=== PATIENT | male | born 1975 | race Caucasian/White ===

== ENCOUNTER 2017-03-27 09:01 | Emergency (ER) | payer BC ==
--- NOTE | 2017-03-27 09:40 | EDM.PDOC ---
ED HPI GENERAL MEDICAL PROBLEM - General Chief Complaint: Cardiovascular Problem Stated Complaint: SENT BY CLINIC HIGH BLOOD PRESSURE Time Seen by Provider: 03/27/17 09:25 Source of Information: Reports: Patient History Limitations: Reports: No Limitations - History of Present Illness INITIAL COMMENTS - FREE TEXT/NARRATIVE: The patient presents with sinus congestion, facial pain and sinus infection. He says he sees this every year about this time. He has no fever yet and she has no cough or sore throat. He has a history of HTN and he did not take his medication this morning. He worked all night. His BP was high and when he went to the walk in clinic they sent him over here. He also has a holter monitor on and he is reacting to the patch on his left lateral chest. He denies chest pain, headache, numbness or weakness. Onset: Gradual Duration: Day(s): (Yesterday) Location: Reports: Face Quality: Reports: Pressure Severity: Moderate Improves with: Reports: None Worsens with: Reports: None Associated Symptoms: Reports: No Other Symptoms - Related Data Allergies Allergy/AdvReac Type Severity Reaction Status Date / Time buspirone HCl [From BuSpar] Allergy Hallucinati Verified 03/27/17 09:12 ons adhisive. Allergy Rash Uncoded 03/27/17 09:13 Home Meds: Home Meds Aspirin 81 mg PO DAILY 02/12/16 [History] Clopidogrel [Plavix] 75 mg PO DAILY 02/12/16 [History] Furosemide [Lasix] 40 mg PO ASDIRECTED 02/12/16 [History] Insulin Aspart [NovoLOG] 8 units SQ TID 02/12/16 [History] Isosorbide Mononitrate [Isosorbide Mononitrate ER] 30 mg PO DAILY 02/12/16 [ History] Losartan Potassium 50 mg PO DAILY 02/12/16 [History] Metoprolol Succinate [Metoprolol Succinate] 50 mg PO DAILY 02/12/16 [History] Multivitamin [One Daily] 1 tab PO DAILY 02/12/16 [History] Potassium Gluconate 595 mg PO ASDIRECTED 02/12/16 [History] Simvastatin [Zocor] 20 mg PO DAILY 02/12/16 [History] Amoxicillin 1,000 mg PO BID #40 tab 03/27/17 [Rx] Escitalopram [Lexapro] 10 mg PO DAILY 03/27/17 [History] Gabapentin [Neurontin] 300 mg PO TID 03/27/17 [History] Insulin Degludec [Tresiba Flextouch U-200] 45 units SQ DAILY 03/27/17 [History] hydrOXYzine HCl [Atarax] 25 mg PO BEDTIME 03/27/17 [History] Past Medical History Cardiovascular History: Reports: Heart Failure, Hypertension, [place] Psychiatric History: Reports: Depression Endocrine/Metabolic History: Reports: Diabetes, Type I Social & Family History - Tobacco Use Smoking Status *Q: Never Smoker ED ROS GENERAL - Review of Systems Review Of Systems: See Below Constitutional: Reports: No Symptoms HEENT: Reports: Other (Congestion and facial pressure) Respiratory: Reports: No Symptoms Cardiovascular: Reports: No Symptoms Endocrine: Reports: No Symptoms GI/Abdominal: Reports: No Symptoms : Reports: No Symptoms Musculoskeletal: Reports: No Symptoms Skin: Reports: No Symptoms ED EXAM, GENERAL - Physical Exam Exam: See Below Exam Limited By: No Limitations General Appearance: Alert, No Apparent Distress Ears: Normal External Exam, Normal Canal, Normal TMs Nose: Normal Inspection Throat/Mouth: Normal Inspection Head: Other (Mild pain upon palpation to the frontal sinuses) Neck: Normal Inspection, Supple, Non-Tender Respiratory/Chest: No Respiratory Distress, Lungs Clear, Normal Breath Sounds Cardiovascular: Regular Rate, Rhythm, No Edema, No Murmur GI/Abdominal: Soft, Non-Tender, No Organomegaly, No Mass Back Exam: Normal Inspection Extremities: Normal Inspection Neurological: Alert, Oriented, No Motor/Sensory Deficits Course - Vital Signs Last Recorded V/S: Last Vital Signs Temp 98.2 F 03/27/17 09:07 Pulse 100 03/27/17 09:07 Resp 18 03/27/17 09:07 BP 199/140 H 03/27/17 09:17 Pulse Ox 98 03/27/17 09:07 - Re-Assessments/Exams Free Text/Narrative Re-Assessment/Exam: 03/27/17 09:41 I will have RT come and give him some different patches to apply. I will also get him on some amoxicillin and he will take his BP meds when he gets home. Departure - Departure Time of Disposition: 09:45 Disposition: Home, Self-Care 01 Condition: Good Clinical Impression: Sinusitis Qualifiers: Sinusitis location: frontal Chronicity: acute Recurrence: recurrent Qualified Code(s): J01.11 - Acute recurrent frontal sinusitis Hypertension Qualifiers: Hypertension type: essential hypertension Qualified Code(s): I10 - Essential ( primary) hypertension Contact dermatitis Qualifiers: Contact dermatitis type: allergic Contact dermatitis trigger: adhesive Qualified Code(s): L23.1 - Allergic contact dermatitis due to adhesives Prescriptions: Amoxicillin 1,000 mg PO BID #40 tab Referrals: Law Rangel MD [Primary Care Provider] - Additional Instructions: Take the amoxicillin 2 pills or 1,000mg 2 times per day for 10 days. Try the new patches. Try some benadryl or hydrocortisone cream on the current rash. Please take your blood pressure medication when you get home. Please return if you are worse.
[2017-03-27 10:13] VITALS: BP 185/108
== END 2017-03-27 10:13 | disposition home or self-care (01) ==
LOC: JD.ED 09:01
DX: J01.11 Acute recurrent frontal sinusitis (principal); L23.1 Allergic contact dermatitis due to adhesives; I11.0 Hypertensive heart disease with heart failure; I50.9 Heart failure, unspecified; I25.2 Old myocardial infarction; E11.9 Type 2 diabetes mellitus without complications; Z88.8 Allergy status to other drugs, medicaments and biological substances; Z79.82 Long term (current) use of aspirin; Z79.4 Long term (current) use of insulin; Z79.899 Other long term (current) drug therapy
CPT/HCPCS: 99283